=== PATIENT | male | born 1950 | race Asian ===

== ENCOUNTER 2022-10-10 14:27 | Inpatient (IN) | payer OTHER ==
[~2022-10-10] VITALS: Ht 157.5 cm; Wt 63.5 kg
[2022-10-10] MEDS ORDERED: IV NORMAL SALINE 1000 ML BAG IV ONE (14:45)
--- NOTE | 2022-10-10 14:47 | NUR ---
PT IS IN ROOM #2B. DR ESCOTO EVALUATED THE PT.
[2022-10-10 14:56] LABS: HEMATOCRIT 30.1 % (36.7-47.1); MEAN CORPUSCULAR HEMOGLOBIN 29.3 uug (23.8-33.4); MEAN CORPUSCULAR VOLUME 89.3 fL (73.0-96.2); PLATELET COUNT (AUTO) 194 K/uL (152-348)
[2022-10-10 15:06] LABS: CARBON DIOXIDE 11 mmol/L (21-32); CHLORIDE 109 mmol/L (98-107); GLUCOSE 188 mg/dL (74-106); POTASSIUM 4.7 mmol/L (3.5-5.1); UREA NITROGEN, BLOOD 79 mg/dL (7-18)
[2022-10-10] MEDS ORDERED: LISI40TA13 PO (15:07)
[2022-10-10] MEDS ORDERED: AMLO-212 PO (15:07)
[2022-10-10] MEDS ORDERED: TAMS-3 PO (15:07)
[2022-10-10] MEDS ORDERED: HYDR-4077 PO (15:07)
[2022-10-10] MEDS ORDERED: CARV12.52 PO (15:07)
[2022-10-10 15:15] LABS: ALANINE AMINOTRANSFERASE 15 U/L (16-63); ALKALINE PHOSPHATASE 68 U/L (50-136); ASPARTATE AMINOTRANSFERASE < 5 U/L (15-37); BILIRUBIN,DIRECT 0.1 mg/dL (0.0-0.2); BILIRUBIN,TOTAL 0.2 mg/dL (0.2-1.0); TOTAL PROTEIN, SERUM 6.7 g/dL (6.4-8.2)
[2022-10-10 16:33] LABS: *OCCULT BLOOD STOOL NEGATIVE (NEGATIVE)
[2022-10-10 16:36] LABS: BAND % (MANUAL) 1 % (0-10); EOSINOPHILS % (MANUAL) 9 % (0-8); LYMPHOCYTES % (MANUAL) 14 % (20-40); MONOCYTES % (MANUAL) 14 % (2-10); NEUTROPHILS % (MANUAL) 62 % (42-75)
[2022-10-10 16:48] LABS: *BILIRUBIN,URIN NEGATIVE (NEGATIVE); *BLOOD, URINE NEGATIVE (NEGATIVE); *CLARITY,URINE CLEAR (CLEAR); *COLOR,URINE YELLOW (YELLOW); *KETONES,URINE NEGATIVE (NEGATIVE); *UROBILINOGEN,URINE 0.2 E.U./dl (NORMAL); LEUKOCYTE ESTERASE ,URINE NEGATIVE (NEGATIVE); NITRITE, URINE NEGATIVE (NEGATIVE); PH,URINE 5.5 (5.0-8.0); UGLUCOSE NEGATIVE (NEGATIVE)
[2022-10-10 17:13] LABS: RBC,URINE 0-3 /HPF (0-3); WBC,URINE 0-3 /HPF (0-3)
[2022-10-10] MEDS ORDERED: ASPIRIN 325 MG TABLET PO ONE (17:15)
[2022-10-10] MEDS ORDERED: ATOR20TA PO (17:24)
[2022-10-10] MEDS ORDERED: METF-442 PO (17:24)
[2022-10-10] MEDS ORDERED: ASPI81TA31 PO (17:24)
[2022-10-10] MEDS ORDERED: ISOS120T13 PO (17:24)
[2022-10-10] MEDS ORDERED: DAPA10TA PO (17:24)
[2022-10-10] MEDS ORDERED: SEMA14TA PO (17:24)
[2022-10-10] MEDS ORDERED: ASPIRIN 325 MG TABLET ONE (17:54)
[2022-10-10] MEDS ORDERED: ACETAMINOPHEN 325 MG TABLET PO PRN (18:30)
[2022-10-10] MEDS ORDERED: ONDANSETRON 4 MG/2 ML VIAL IV PRN (18:30)
[2022-10-10] MEDS ORDERED: REMEDY ESSENTIAL ZINC PASTE 113 GM TP PRN (18:30)
[2022-10-10] MEDS ORDERED: MAGNESIUM HYDROXIDE 30 ML LIQUID UDC PO PRN (18:30)
--- NOTE | 2022-10-10 19:15 | NUR ---
Recieved report form Hoang ASHER.
--- NOTE | 2022-10-10 19:52 | NUR ---
Called third floor for room number, was told to call back.
--- NOTE | 2022-10-10 20:18 | NUR ---
Called third floor and recieved room number [id number].
--- NOTE | 2022-10-10 20:58 | NUR ---
Called third floor to give report to Miller ASHER. Was told he would call me back when ready for report.
--- NOTE | 2022-10-10 21:15 | NUR ---
Third floor called gave report to Yefri ASHER.
[2022-10-10 21:30] VITALS: BP 120/57
--- NOTE | 2022-10-10 21:30 | NUR ---
Transferred patient to third floor via gurney. Miller RN made aware of patient's arrival.
[2022-10-10] MEDS: IV 1/2NS 1000 ML 1,000 ML IV PRN (22:02)
[2022-10-11] VITALS: BP 114/61
[2022-10-11 04:00] VITALS: BP 125/64
--- NOTE | 2022-10-11 06:45 | NUR ---
END OF SHIFT REPORT: ADMITTED TO ROOM 310, PLACED ON TELE MONITOR, SNACKS GIVEN, ADMISSION PROCEDURE DONE. PLAN OF CARE EXPLAINED. SAFETY MEASURES IN PLACE, HOURLY ROUNDING COMPLETED. CONTINUE TO MONITOR, CONTINUE PLAN OF CARE
[2022-10-11 06:58] LABS: HEMATOCRIT 29.9 % (36.7-47.1); MEAN CORPUSCULAR HEMOGLOBIN 29.6 uug (23.8-33.4); PLATELET COUNT (AUTO) 193 K/uL (152-348)
[2022-10-11 07:21] LABS: CARBON DIOXIDE 16 mmol/L (21-32); CHLORIDE 114 mmol/L (98-107); CREATININE 1.8 mg/dL (0.6-1.3); GLUCOSE 138 mg/dL (74-106); PHOSPHOROUS 2.3 mg/dL (2.5-4.9); POTASSIUM 4.1 mmol/L (3.5-5.1); UREA NITROGEN, BLOOD 50 mg/dL (7-18)
[2022-10-11 07:32] LABS: THYROID STIMULATING HORMONE 1.475 mIU/mL (0.358-3.740)
--- NOTE | 2022-10-11 08:00 | NUR ---
AWAKE ALERT AND ORIENTED X3 ON RA NO SS OF PAIN OR RESPIRATORY DISTRESS SATURATING 97% 0N RA.
[2022-10-11] MEDS: ASPIRIN 81 MG TAB.CHEW PO SCH (08:29)
[2022-10-11] MEDS: MAGNESIUM SULFATE/D5W 100 ML IV SCH ×4 (08:30→11:33)
[2022-10-11] MEDS: IV 1/2NS 1000 ML 1,000 ML IV PRN ×2 (08:39→19:29)
--- NOTE | 2022-10-11 10:00 | NUR ---
SEEN BY DR MCGUIRE NOTED LABS WITH ORDERS. DR HERRERA IN VERIFY MAGNESIUM ORDER AND SAID OK TO GIVE 4 BAGS ORDERED BY ENVIRONMENTAL PROTECTION SPECIALIST
[2022-10-11 12:00] VITALS: BP 132/68
[2022-10-11 12:00] LABS: *BILIRUBIN,URIN NEGATIVE (NEGATIVE); *CLARITY,URINE CLEAR (CLEAR); *COLOR,URINE YELLOW (YELLOW); *KETONES,URINE NEGATIVE (NEGATIVE); *UROBILINOGEN,URINE 0.2 E.U./dl (NORMAL); LEUKOCYTE ESTERASE ,URINE NEGATIVE (NEGATIVE); NITRITE, URINE NEGATIVE (NEGATIVE); PH,URINE 5.5 (5.0-8.0)
[2022-10-11 12:10] LABS: *CREATININE,URINE 30.5 mg/dL (30-125); *URINE TOTAL PROTEIN RANDOM 39.5 mg/dL (<150/24HR)
[2022-10-11 12:21] LABS: *BLOOD, URINE TRACE (NEGATIVE); UGLUCOSE 1+ (NEGATIVE)
[2022-10-11 12:52] LABS: BACTERIA,URINE FEW /HPF (NONE SEEN); RBC,URINE 0-3 /HPF (0-3); WBC,URINE 0-3 /HPF (0-3)
[2022-10-11 14:26] LABS: BAND % (MANUAL) 3 % (0-10); EOSINOPHILS % (MANUAL) 10 % (0-8); LYMPHOCYTES % (MANUAL) 19 % (20-40); MONOCYTES % (MANUAL) 11 % (2-10); NEUTROPHILS % (MANUAL) 53 % (42-75); REACTIVE LYMPHOCYTES 4 % (0-0)
[2022-10-11] MEDS ORDERED: DOCU250C14 PO (15:21)
[2022-10-11] MEDS ORDERED: POLY17PO4 PO (15:21)
[2022-10-11] MEDS ORDERED: INSU3INS6 SQ (15:21)
--- NOTE | 2022-10-11 15:56 | NUR ---
CONTINUE WITH IVF MANAGEMENT NO SS OF ACUTE PAIN OR RESPIRATORY DISTRESS SR ON MONITOR
[2022-10-11 16:00] VITALS: BP 120/70
[2022-10-11] MEDS ORDERED: NEUTRA PHOS PACKET PO ONE (17:00)
[2022-10-11] MEDS: CARVEDILOL 12.5 MG TABLET PO SCH (17:14)
--- NOTE | 2022-10-11 18:50 | NUR ---
PATIENT DENIES CHEST PAIN OR SOB PREFER WATCHING TV MOST OF THE SHIFT SR ON MONITOR
[2022-10-11 20:00] VITALS: BP_SYST 120; BP_SYST 142; BP_DIAS 57; BP_DIAS 73
[2022-10-12] MEDS: IV 1/2NS 1000 ML 1,000 ML IV PRN (03:36)
[2022-10-12 04:00] VITALS: BP 142/67
[2022-10-12 06:29] LABS: HEMATOCRIT 27.3 % (36.7-47.1); MEAN CORPUSCULAR HEMOGLOBIN 28.9 uug (23.8-33.4); MEAN CORPUSCULAR VOLUME 88.1 fL (73.0-96.2); PLATELET COUNT (AUTO) 198 K/uL (152-348)
[2022-10-12 06:48] LABS: ALANINE AMINOTRANSFERASE 22 U/L (16-63); ALKALINE PHOSPHATASE 71 U/L (50-136); ASPARTATE AMINOTRANSFERASE 9 U/L (15-37); BILIRUBIN,TOTAL 0.1 mg/dL (0.2-1.0); CARBON DIOXIDE 17 mmol/L (21-32); CHLORIDE 113 mmol/L (98-107); CREATININE 1.4 mg/dL (0.6-1.3); GLUCOSE 234 mg/dL (74-106); MAGNESIUM 1.6 mg/dL (1.8-2.4); PHOSPHOROUS 1.9 mg/dL (2.5-4.9); POTASSIUM 3.9 mmol/L (3.5-5.1); TOTAL PROTEIN, SERUM 6.2 g/dL (6.4-8.2); UREA NITROGEN, BLOOD 20 mg/dL (7-18)
[2022-10-12 07:14] LABS: CREATINE KINASE, TOTAL 39 U/L (39-308)
[2022-10-12] MEDS ORDERED: IV 1/2NS 1000 ML 1,000 ML IV PRN (07:20)
--- NOTE | 2022-10-12 08:00 | NUR ---
RECEIVED PATIENT IN BED AWAKE ALERT AND ORIENTED X3 NO SS OF PAIN OR SOB. CONTINUE WITH TELE STATUS SR ON MONITOR
[2022-10-12] MEDS: MAGNESIUM SULFATE/D5W 100 ML IV SCH ×2 (08:29→09:38)
[2022-10-12] MEDS: ASPIRIN 81 MG TAB.CHEW PO SCH (08:30)
[2022-10-12] MEDS: CARVEDILOL 12.5 MG TABLET PO SCH ×2 (08:30→17:12)
[2022-10-12] MEDS ORDERED: ATORVASTATIN 20 MG TABLET PO SCH (09:00)
[2022-10-12] MEDS ORDERED: ASPIRIN 81 MG TAB.CHEW PO SCH (09:00)
[2022-10-12] MEDS ORDERED: ISOSORBIDE MONONITRATE 60 MG TAB.SR.24H PO SCH (09:00)
[2022-10-12] MEDS ORDERED: SEMAGLUTIDE PO SCH (09:00)
--- NOTE | 2022-10-12 09:00 | NUR ---
SEEN BY DR MCGUIRE, PATIENT CAN BE DISCHARGE PER CARDIOLOGY STANDPOINT. SEE NOTES
[2022-10-12 11:11] LABS: EOSINOPHILS % (MANUAL) 6 % (0-8); LYMPHOCYTES % (MANUAL) 13 % (20-40); MONOCYTES % (MANUAL) 13 % (2-10); NEUTROPHILS % (MANUAL) 68 % (42-75)
[2022-10-12 11:35] VITALS: BP 103/50
--- NOTE | 2022-10-12 12:00 | NUR ---
SEEN BY PHYSICAL THERAPIST FOR EXERCISES PATIENT TOLERATED WELL SEE NOTES
[2022-10-12 15:05] VITALS: BP 130/73
[2022-10-12] MEDS ORDERED: NEUTRA PHOS PACKET PO ONE (16:00)
--- NOTE | 2022-10-12 16:07 | NUR ---
SEEN BY DR HERRERA WITH PLAN TO DISCHARGE HOME SEE NOTES. EXTRUDING MACHINE OPERATOR MADE AWARE.
[2022-10-12 17:12] VITALS: BP 128/70
--- NOTE | 2022-10-12 18:15 | NUR ---
DISCHARGED HOME STABLE ACCOMPANIED BY FAMILY WITH RX AND FOLLOW-UP INSTRUCTION WITH PCP AND ANODIZE MACHINE OPERATOR GIVEN.
[2022-10-12] MEDS ORDERED: TAMSULOSIN HCL 0.4 MG CAP.SR.24H PO SCH (21:00)
[2022-10-13 12:07] LABS: A/G RATIO 0.9 (0.7-1.7); ALBUMIN 2.7 g/dL (2.9-4.4); ALPHA-1-GLOBULIN 0.2 g/dL (0.0-0.4); ALPHA-2-GLOBULIN 0.9 g/dL (0.4-1.0); BETA GLOBULIN 0.7 g/dL (0.7-1.3); GAMMA GLOBULIN 1.1 g/dL (0.4-1.8); M-SPIKE Not Observed g/dL (Not Observed)
== END 2022-10-12 18:15 | disposition home or self-care (01) | DRG 280 ==
LOC: ER 14:27 → TELE3 21:17 → MEDSURG3 10-12 08:40
PROVIDERS: ADMIT Student in an Organized Health Care Education/Training Program; ATTEND Student in an Organized Health Care Education/Training Program
DX: I21.4 Non-ST elevation (NSTEMI) myocardial infarction (principal); N17.0 Acute kidney failure with tubular necrosis; I95.9 Hypotension, unspecified; D64.9 Anemia, unspecified; D72.829 Elevated white blood cell count, unspecified; E11.9 Type 2 diabetes mellitus without complications; E78.5 Hyperlipidemia, unspecified; E83.42 Hypomagnesemia; E86.0 Dehydration; I10 Essential (primary) hypertension; I25.10 Atherosclerotic heart disease of native coronary artery without angina pectoris; Z79.4 Long term (current) use of insulin; Z79.82 Long term (current) use of aspirin; Z20.822 Contact with and (suspected) exposure to COVID-19; N40.0 Benign prostatic hyperplasia without lower urinary tract symptoms; Z79.84 Long term (current) use of oral hypoglycemic drugs
CPT/HCPCS: 36415; 70030-TC; 71045; 83605; 83735; 83970; 84100; 84155; 84165; 84300; 84443; 84484; 85025; 85730; 87040; 93005; A4663; G0378; J3475; J7040